=== PATIENT | female | born 1965 | race Caucasian/White ===

== ENCOUNTER 2020-10-04 11:07 | Outpatient (CLI) | payer OTHER ==
--- NOTE | 2020-10-05 08:51 | Ultrasound Report ---
LIMITED ULTRASOUND OF RIGHT BREAST: 10/04/2020 CLINICAL: Palpable right breast lump. Comparison is made to exams dated: 10/04/2020 mammogram - [facility], 12/02/2018 [facility], 09/02/2017 mammogram, 11/30/2015 mammogram - [facility], 06/25/2013 mammogram, a nd 01/01/2012 mammogram - [facility]. Color flow ultrasound of the right breast 4 o'clock, and retroareolar regions was performed. Streeter sc lexi images of the real-time examination were reviewed. IMPRESSION: NEGATIVE There is no sonographic evidence of malignancy. There is no abnormality seen in the right breast to correspond with the palpable abnormality at 4 o'c lock, however, clinical followup is recommended. A 1 year screening mammogram is recommended. This exam was interpreted at Station ID: [id number]. Electronically Signed By: Ritchie Auguste acr/otisrad:10/04/2020 12:22:26 Ultrasound BI-RADS: 1 Negative BI-RADS CATEGORY: (1) - 1 RECOMMENDATION: (ANNUAL) - Recommend routine annual screening mammography. [id number] 1 year screening LATERALITY: (B)
--- NOTE | 2020-10-05 08:51 | Mammography Report ---
BILATERAL DIGITAL DIAGNOSTIC MAMMOGRAM 3D/2D: 10/04/2020 CLINICAL: Palpable right breast lump. Comparison is made to exams dated: 12/02/2018 mammogram, 09/02/2017 mammogram, 11/30/2015 mammogram - [facility], 06/25/2013 mammogram, 01/01/2012 mammogram, and 12/25/2011 mammogram - [facility]. There are scattered fibroglandular elements in both breasts. Bilateral breast implants are intact. No significant masses, calcifications, or other findings are seen in either breast. No abnormality which corresponds with the palpable abnormality is seen. IMPRESSION: INCOMPLETE: NEEDS ADDITIONAL IMAGING EVALUATION There is no abnormality seen in the right breast to correspond with the area of clinical concern and palpable abnormality at 4 o'clock, however, ultrasound is recommended. US will be performed and dict ated separately. This exam was interpreted at Station ID: [id number]. NOTE: For mammograms, a report in lay terms will be sent to the patient. Approximately 15% of breast malignancies will not be visualized mammographically. In the management of a palpable breast mass, a negative mammogram must not discourage biopsy of a clinically suspicious lesion. Electronically Signed By: Ritchie Auguste acr/:10/04/2020 12:21:12 ACR BI-RADS Category 0: Incomplete 3340F PARENCHYMAL PATTERN: (A) - The breast(s) demonstrate(s) scattered fibroglandular densities. BI-RADS CATEGORY: (0) - 0 Ultrasound [id number] Immediate follow-up LATERALITY: (B)
== END 2020-10-04 11:08 | disposition home or self-care (01) ==
LOC: DI 11:07
PROVIDERS: ATTEND Family Medicine
DX: N63.14 Unspecified lump in the right breast, lower inner quadrant (principal)